=== PATIENT | male | born 1990 | race Caucasian/White ===

== ENCOUNTER 2017-06-03 06:00 | Emergency (ER) | payer MEDICAID ==
[~2017-06-03] VITALS: Ht 182.9 cm; Wt 81.6 kg
[2017-06-03 06:02] VITALS: BP_SYST 123
[2017-06-03] MEDS ORDERED: NACL 0.9% 1,000 ML IV ONE (06:30)
[2017-06-03 07:14] LABS: CALCIUM 8.3 mg/dL (8.4-11.0); CREATININE 0.95 mg/dL (0.55-1.30); POTASSIUM 3.5 mmol/L (3.5-5.1)
[2017-06-03 07:19] LABS: ALBUMIN 4.3 g/dL (3.4-4.8); TOTAL BILIRUBIN 0.3 mg/dL (0.0-1.0)
[2017-06-03 07:23] LABS: BASOPHILS # (AUTO) 0.1 K/uL (0.0-0.2); BASOPHILS % (AUTO) 0.8 % (0.0-2.0); EOSINOPHILS # (AUTO) 0.4 K/uL (0.0-0.4); EOSINOPHILS % (AUTO) 5.2 % (0.0-4.0); HEMATOCRIT 43.7 % (36-54); HEMOGLOBIN 15.1 g/dL (14.0-18.0); LYMPHOCYTES # (AUTO) 2.7 K/uL (1.0-5.5); LYMPHOCYTES % (AUTO) 34.1 % (20.5-51.5); MEAN CORPUSCULAR HEMOGLOBIN 30 pg (27-31); MEAN CORPUSCULAR HGB CONC 35 % (32-36); MEAN CORPUSCULAR VOLUME 88 fL (79.0-98.0); MONOCYTES # (AUTO) 0.6 K/uL (0.0-1.0); MONOCYTES % (AUTO) 7.1 % (1.7-9.3); NEUTROPHILS # (AUTO) 4.2 K/uL (1.8-7.7); NEUTROPHILS % (AUTO) 52.8 % (40.0-70.0); PLATELET COUNT (AUTO) 209 K/uL (130-430); RED BLOOD CELL COUNT(AUTO) 4.96 MIL/uL (4.2-6.2); RED CELL DISTRIBUTION WIDTH 11.8 % (9.0-15.0)
[2017-06-03 07:40] VITALS: BP_SYST 124
[2017-06-03 08:05] LABS: INR 0.9 (0.80-1.20); PROTHROMBIN TIME 9.3 SECS (9.5-12.5)
== END 2017-06-03 07:42 | disposition home or self-care (01) ==
LOC: SED 06:00
DX: R10.13 Epigastric pain (principal); R11.10 Vomiting, unspecified; T40.605A Adverse effect of unspecified narcotics, initial encounter; J45.909 Unspecified asthma, uncomplicated; F17.200 Nicotine dependence, unspecified, uncomplicated; Y92.89 Other specified places as the place of occurrence of the external cause
CPT/HCPCS: 36415; 71010; 80053; 85025; 85610; 85730; 93005; 96360; 99285; J7030

== ENCOUNTER 2017-10-05 09:24 | Emergency (ER) | payer MEDICAID ==
[~2017-10-05] VITALS: Ht 182.9 cm; Wt 81.6 kg
[2017-10-05 09:52] VITALS: BP_SYST 125
[2017-10-05 10:10] LABS: BILIRUBIN,URINE NEGATIVE (NEGATIVE); BLOOD, URINE NEGATIVE (NEGATIVE); CLARITY/URINE CLEAR (CLEAR); COLOR,URINE YELLOW (YELLOW); GLUCOSE,URINE NEGATIVE (NEGATIVE); KETONES,URINE NEGATIVE (NEGATIVE); LEUKOCYTE ESTERASE ,URINE NEGATIVE (NEGATIVE); NITRITE, URINE NEGATIVE (NEGATIVE); PH,URINE 6.5 (5.0-8.0); PROTEIN URINE NEGATIVE (NEGATIVE); UROBILINOGEN,URINE 0.2 (0.2-1.0)
--- NOTE | 2017-10-05 11:39 | NUR ---
Ambulatory to [facility] chair 1
--- NOTE | 2017-10-05 12:20 | NUR ---
Dr. Alicea attempting to find pt for evaluation, pt no longer in hallway chair.
--- NOTE | 2017-10-05 12:46 | NUR ---
Called pt in [place], no answer. Pt eloped at this time.
== END 2017-10-05 12:46 | disposition left against medical advice (07) ==
LOC: SED 09:24
DX: R30.9 Painful micturition, unspecified (principal); Z53.21 Procedure and treatment not carried out due to patient leaving prior to being seen by health care provider
CPT/HCPCS: 81003; 99281

== ENCOUNTER 2018-07-17 11:38 | Inpatient (IN) | payer MEDICAID ==
[~2018-07-17] VITALS: Ht 170.2 cm; Wt 68.9 kg
[2018-07-17 11:38] VITALS: BP_SYST 160
--- NOTE | 2018-07-17 11:40 | NUR ---
BROUGHT BACK TO BED #5 AND TRIAGED. REPORT GIVEN TO HERMINIA
--- NOTE | 2018-07-17 11:55 | NUR ---
PATIENT SITTING UP ON BED. AAOx4. RESPIRATIONS EVEN AND UNLABORED. NO SOB. NO DROOLING. NO THROAT TIGHTNESS. SPEAKING FULL SENTENCES. DENIES OF ANY CHEST PAIN. PT WITH C/O RIGHT FACIAL SWELLING SINCE THIS AM. PT STATED THAT HE WAS GIVEN A "GREEN AND WHITE PILL, [place]" BY HIS FRIEND YESTERDAY FOR HIS PIMPLE. PT WITH DISCOMFORT ON RIGHT SIDE OF FACE = 5/10; TOLERABLE VERBALIZED. RIGHT SIDE OF FACE AND LIPS NOTED WITH SWELLING. NO OBJECTIVE S/SX OF PAIN OBSERVED. MD AWARE OF PT CONDITION. WILL CONTINUE TO MONITOR.
--- NOTE | 2018-07-17 12:00 | NUR ---
ER Dr. DO at bedside examining patient.
[2018-07-17] MEDS ORDERED: KETOROLAC TROMETHAMINE 30 MG VIAL IVP ONE (12:15)
[2018-07-17] MEDS ORDERED: CEFAZOLIN 1 GM IVPB PREMIX 50 ML IV ONE (12:15)
[2018-07-17] MEDS ORDERED: VANCOMYCIN HCL 1,000 MG in NS 250 ML IV ONE (12:15)
[2018-07-17] MEDS ORDERED: VANCOMYCIN HCL 1000 MG/VIAL IV ONE (12:25)
--- NOTE | 2018-07-17 12:30 | NUR ---
TORADOL ADMINISTERED PER MD ORDERS FOR RIGHT SIDED FACIAL PAIN. TOLERATED WELL. PLEASE SEE MAR FOR DETAILS. IVPB OF CEFAZOLIN STARTED. TOLERTING WELL. PLEASE SEE MAR FOR DETAILS. PT RESTING COMFORTABLY ON BED. NOT IN ANY ACUTE DISTRESS. WILL CONTINUE TO MONITOR.
[2018-07-17 12:49] LABS: CALCIUM 8.8 mg/dL (8.4-11.0); CREATININE 0.79 mg/dL (0.55-1.30); POTASSIUM 3.9 mmol/L (3.5-5.1)
[2018-07-17 12:54] LABS: HEMATOCRIT 42.2 % (36-54); HEMOGLOBIN 14.4 g/dL (14.0-18.0); MEAN CORPUSCULAR HEMOGLOBIN 33 pg (27-31); MEAN CORPUSCULAR HGB CONC 34 % (32-36); MEAN CORPUSCULAR VOLUME 95 fL (79.0-98.0); PLATELET COUNT (AUTO) 403 K/uL (130-430); RED BLOOD CELL COUNT(AUTO) 4.43 MIL/uL (4.2-6.2); RED CELL DISTRIBUTION WIDTH 12.3 % (9.0-15.0); WHITE BLOOD COUNT (AUTO) 19.3 K/uL (4.8-10.8)
[2018-07-17 12:55] LABS: ALBUMIN 3.1 g/dL (3.4-4.8); TOTAL BILIRUBIN 0.4 mg/dL (0.0-1.0)
[2018-07-17 13:42] LABS: BASOPHILS % (MANUAL) 0 % (0-2); EOSINOPHILS % (MANUAL) 0 % (0-7); LYMPHOCYTES % (MANUAL) 7 % (20-46); MONOCYTES % (MANUAL) 8 % (0-11)
--- NOTE | 2018-07-17 13:45 | NUR ---
Pt resting comfortably in bed with no signs of distress .Will continue to monitor.
--- NOTE | 2018-07-17 15:30 | NUR ---
Patient resting quietly in no acute distress. Dr Lee at bedside speaking with patient regarding results and plan of care. Questions answered by Dr Lee.
--- NOTE | 2018-07-17 16:07 | NUR ---
Patient will be admitted to care of [facility]. Admitted to MEDSURG unit. Will go to room 120B. Belongings list completed. Summary report printed. Report will be given at bedside.
--- NOTE | 2018-07-17 16:15 | NUR ---
PATIENT COMES FROM ER VIA GURNEY A 52 YEAR OLD MALE WITH FACIAL SWELLING ON THE RT FACE INCLUDING THE LIP AREA. WARM TO TOUCH, REDNESS NOTED. VITAL SIGNS STABLE 164/91, TEMP 98.7 HR 85 RESPIRATION 20. COMPLAINED OF PAIN ON THE RT FACE AND HEADACHE NOTED. ADMISSION ASSESSMENT DONE. REFUSED TO HAVE FLU SHOT. VERBALIZED WANTS TO EAT. AT 1635PM DR COWART CAME AND SEE THE PATIENT AND MADE ORDERS. ORIENTATION TO THE ROOM EXPLAINED TO THE PATIENT.
[2018-07-17 16:32] VITALS: BP_SYST 164
[2018-07-17 16:44] VITALS: BP_SYST 164
[2018-07-17] MEDS ORDERED: IBUPROFEN 600 MG TABLET PO PRN (16:45)
[2018-07-17] MEDS ORDERED: ACETAMINOPHEN 325 MG TABLET PO PRN (16:45)
[2018-07-17] MEDS ORDERED: VANCOMYCIN HCL 1 GM/NS PREMIX 250 ML IV SCH (17:00)
[2018-07-17] MEDS ORDERED: FAMOTIDINE 20 MG TABLET PO ONE (17:00)
--- NOTE | 2018-07-17 17:00 | NUR ---
Note Report received from admit RN Chuy Burgos for continuation of care. Admission assessment was completed at this time. Call light within reach.
--- NOTE | 2018-07-17 17:09 | NUR ---
ID consult called: for Dr. Whitt, regarding facial cellulitis, ordered by Dr. Raymundo, spoke with Radha.
--- NOTE | 2018-07-17 18:35 | NUR ---
Note Checked medication room IVF's - not available at this time. Pt asleep. Pt has been sleepy and drowsy since pt arrived on floor at 1630. No SOB/resp distress or pain/discomfort noted all shift. IV in right AC intact and patent at this time. Pt checked on q1' and PRN all shift for needs and care. No needs noted. Call light within reach.
[2018-07-17 19:05] VITALS: BP_SYST 155
--- NOTE | 2018-07-17 19:05 | NUR ---
OPENING NOTE RECEIVED PT ENDORSEMENT REPORT FROM DAY SHIFT NURSE KEIRA AT BEDSIDE. PT RESTING IN BED WITH EYES OPEN, CHEST RISE EVEN AND UNLABORED. NO SOB NOTED. NO DISTRESS NOTED. PT DENIES PAIN AT THIS TIME. PT'S IV ON RIGHT AC 20 G, SL. IV CLEAN, DRY AND INTACT. SKIN IS INTACT. CELLULITIS TO PT'S RIGHT SIDE OF FACE AND SWELLING MOSTLY ON PT'S RIGHT SIDE OF LIPS. PT ABLE TO AMBULATE TO RESTROOM WITH STEADY GAIT. VITAL SIGNS WNL. INSTRUCTED PT HOW TO USE CALL LIGHT AND ROOM PHONE. PT VERBALIZED UNDERSTANDING. INSTRUCTED PT ON SAFETY AND TO USE CALL LIGHT TO CALL FOR ASSISTANCE. PT VERBALIZED UNDERSTANDING. SAFETY MEASURES IN PLACE. CALL LIGHT/ ROOM PHONE WITHIN REACH, BED ALARM ON, BED IN LOWEST POSITION, BED RAILS UP X2, BED WHEELS LOCKED, BEDSIDE TABLE WITHIN REACH. NO OTHER NEEDS AT THIS TIME. SAFETY MEASURES IN PLACE. WILL CONTINUE TO MONITOR PT AND CONTINUE POC.
[2018-07-17] MEDS: POTASSIUM CHLORIDE 10 MEQ in NACL 0.9% 1,000 ML IV SCH (20:27)
--- NOTE | 2018-07-17 20:50 | NUR ---
RN ROUNDS PT RESTING IN BED WITH EYES OPEN, CHEST RISE EVEN AND UNLABORED. NO SOB NOTED. NO DISTRESS NOTED. FAMILY AT BEDSIDE. PT REPORTS 6/10 PAIN, PT C/O HEADACHE. PRN MOTRIN ADMINISTERED FOR PAIN ORDERED. PT TOLERATED WELL. WILL MONITOR MEDICATION EFFECTIVENESS. NO OTHER NEEDS AT THIS TIME. SAFETY MEASURES IN PLACE. WILL CONTINUE TO MONITOR PT AND CONTINUE POC.
--- NOTE | 2018-07-17 21:00 | NUR ---
RN ROUNDS PT RESTING IN BED WITH EYES OPEN, CHEST RISE EVEN AND UNLABORED. NO SOB NOTED. NO DISTRESS NOTED. PT DENIES PAIN AT THIS TIME. SCHEDULED FLUIDS ADMINISTERED AT ORDERED RATE. IVF INFUSING WELL. NO OTHER NEEDS AT THIS TIME. INSTRUCTED PT TO CALL FOR ASSISTANCE. SAFETY MEASURES IN PLACE. WILL CONTINUE TO MONITOR PT AND CONTINUE POC.
[2018-07-17] MEDS: ceFAZolin SODIUM 1 GM in D5W 50 ML IV SCH (22:17)
[2018-07-17 23:13] VITALS: BP_SYST 169
[2018-07-17] MEDS: cloNIDine HCL 0.1 MG TABLET PO PRN (23:51)
--- NOTE | 2018-07-17 23:53 | NUR ---
MED PASS PT C/O 3/10 MOUTH PAIN. PRN TYLENOL GIVEN ORDERED FOR MILD PAIN. PT'S BP 169/90 PRN CLONIDINE GIVEN FOR SBP GREATER THAN 160. PT TOLERATED MEDICATIONS WELL. SAFETY MEASURES IN PLACE. WILL CONTINUE TO MONITOR PT.
--- NOTE | 2018-07-18 01:03 | NUR ---
RN ROUNDS PT RESTING IN BED WITH EYES CLOSED, CHEST RISE EVEN AND UNLABORED. NO SOB NOTED. NO DISTRESS NOTED. IVF INFUSING WELL. NO OTHER NEEDS AT THIS TIME. INSTRUCTED PT TO CALL FOR ASSISTANCE. SAFETY MEASURES IN PLACE. WILL CONTINUE TO MONITOR PT AND CONTINUE POC.
[2018-07-18] MEDS: POTASSIUM CHLORIDE 10 MEQ in NACL 0.9% 1,000 ML IV SCH (02:40)
[2018-07-18] MEDS: ceFAZolin SODIUM 1 GM in D5W 50 ML IV SCH (06:16)
--- NOTE | 2018-07-18 06:18 | NUR ---
MED PASS PT RESTING IN BED WITH EYES OPEN. CHEST RISE EVEN AND UNLABORED. NO SOB NOTED. NO DISTRESS NOTED. SCHEDULED ANTIBIOTIC ANCEF ADMINISTERED AT ORDERED RATE. PT TOLERATED WELL. IVF INFUSING WELL. SAFETY MEASURES IN PLACE. WILL CONTINUE TO MONITOR PT.
[2018-07-18 06:45] LABS: CALCIUM 8.9 mg/dL (8.4-11.0); CREATININE 0.73 mg/dL (0.55-1.30); POTASSIUM 4.2 mmol/L (3.5-5.1)
[2018-07-18 07:03] LABS: ALBUMIN 2.7 g/dL (3.4-4.8); TOTAL BILIRUBIN 0.4 mg/dL (0.0-1.0)
--- NOTE | 2018-07-18 07:08 | NUR ---
RN ROUNDS PT RESTING IN BED WITH EYES CLOSED, CHEST RISE EVEN AND UNLABORED. NO SOB NOTED. NO DISTRESS NOTED. NO NEEDS AT THIS TIME. SAFETY MEASURES IN PLACE. WILL CONTINUE TO MONITOR PT AND CONTINUE POC.
[2018-07-18 07:22] LABS: BASOPHILS % (AUTO) 0.2 % (0.0-2.0); EOSINOPHILS # (AUTO) 0.2 K/uL (0.0-0.4); EOSINOPHILS % (AUTO) 0.9 % (0.0-4.0); HEMATOCRIT 40.8 % (36-54); HEMOGLOBIN 13.8 g/dL (14.0-18.0); LYMPHOCYTES # (AUTO) 1.9 K/uL (1.0-5.5); MEAN CORPUSCULAR HEMOGLOBIN 32 pg (27-31); MEAN CORPUSCULAR HGB CONC 34 % (32-36); MEAN CORPUSCULAR VOLUME 95 fL (79.0-98.0); MONOCYTES # (AUTO) 1.4 K/uL (0.0-1.0); MONOCYTES % (AUTO) 7.2 % (1.7-9.3); NEUTROPHILS # (AUTO) 15.5 K/uL (1.8-7.7); PLATELET COUNT (AUTO) 412 K/uL (130-430); RED BLOOD CELL COUNT(AUTO) 4.29 MIL/uL (4.2-6.2); RED CELL DISTRIBUTION WIDTH 12.2 % (9.0-15.0)
[2018-07-18 07:38] LABS: NEUTROPHILS % (AUTO) 81.7 % (40.0-70.0)
--- NOTE | 2018-07-18 07:43 | NUR ---
CLOSING NOTE ENDORSED PT REPORT TO DAY SHIFT NURSE DEMETRIO AT BEDSIDE. PT IS RESTING IN BED COMFORTABLY. CHEST RISE EVEN AND UNLABORED. ALL NEEDS MET THROUGHOUT THE NIGHT. SCHEDULED MEDICATIONS ADMINISTERED ORDERED, PT TOLERATED WELL. PAIN MANAGED THROUGHOUT THE NIGHT. PT CARE ENDORSED.
[2018-07-18 08:00] VITALS: BP_SYST 163
--- NOTE | 2018-07-18 08:00 | NUR ---
RN OPENING NOTE PATIENT RESTING ON BED, ALERT ORIENTEDX4, PATIENT WAS ASSESSED, VITAL SIGNS SHOWS HIGH BLOOD PRESSURE, WILL ADMINISTER HIS PRN BLOOD PRESSURE MEDICATION. PATIENT DENIES PAIN OR DISCOMFORT. PATIENT'S BED AT LOW POSITION AND CALL LIGHT WITHIN REACH, WILL CONTINUE TO MONITOR.
[2018-07-18] MEDS: FAMOTIDINE 20 MG TABLET PO SCH (10:04)
[2018-07-18] MEDS: cloNIDine HCL 0.1 MG TABLET PO PRN (10:18)
[2018-07-18] MEDS: HYDROcodone/ACETAMIN 5-325 MG TAB (NORCO/ VICODIN) PO PRN ×2 (10:27→19:54)
--- NOTE | 2018-07-18 10:27 | NUR ---
RN NOTE PATIENT WAS GIVEN HIS PAIN MEDICATION, PATIENT RESTING ON BED. PATIENT WAS HELPED TO THE BATHROOM WHERE HE VOIDED URINE, WILL CONTINUE TO MONITOR
--- NOTE | 2018-07-18 11:51 | NUR ---
RN NOTE LAB CALLED REGARDING THE MICRO CULTURE OF THE PATIENT ORAL BUCCAL AREA THAT SHOWS. G+VE COCCI IN [place], DR. COWART WAS ON THE FLOOR AND WAS INFORMED OF THE RESULT. NO CHANGES IN ORDER, SHE SAID SHE IS AWAITING FOR DR. HENAO TO SEE THE PATIENT. WILL CONTINUE TO MONITOR.
[2018-07-18 12:00] VITALS: BP_SYST 137
[2018-07-18] MEDS ORDERED: CLINDAMYCIN 600 MG in D5W 50 ML IV ONE (12:15)
[2018-07-18] MEDS: VANCOMYCIN HCL 1 GM/NS PREMIX 250 ML IV SCH (13:18)
--- NOTE | 2018-07-18 13:32 | NUR ---
Elayne Yung Called: left message for Linda, ordered by Dr. Raymundo.
--- NOTE | 2018-07-18 13:43 | NUR ---
RN NOTE PATIENT WAS GIVEN HIS IVPB OF ANTIBIOTICS , PATIENT DENIES PAIN OR DISCOMFORT. WILL CONTINUE TO MONITOR.
[2018-07-18] MEDS: POTASSIUM CHLORIDE 10 MEQ in 0.45% NACL 1,000 ML IV SCH (14:59)
--- NOTE | 2018-07-18 15:50 | NUR ---
CONSULTATION PAGED/CALLED Reason for Consultation: [] FACIAL CELLULITIS Person Who was Notified: [] DR SCHWARTZ Consulting Physician: [] DR SCHWARTZ Test Inspection Engineer Specialty: [] ID Ordering Physician: [] DR COWART
--- NOTE | 2018-07-18 16:00 | NUR ---
RN NOTE PATIENT RESTING ON BED, PATIENT WAS EDUCATED ABOUT HIS DISEASE PROCESS. DR. HENAO ALREADY SAW THE PATIENT , WILL FOLLOW UP WITH THE NEW ANTIBIOTICS. PATIENT WAS ASSISTED TO THE BATH ROOM FOR VOIDING. WILL CONTINUE TO MONITOR.
[2018-07-18 16:40] VITALS: BP_SYST 148
--- NOTE | 2018-07-18 18:00 | NUR ---
RN CLOSING NOTE PATIENT RESTING ON BED , ALERT ORIENTED, DENIES PAIN, PATIENT WAS SERVED HIS DINNER. PATIENT BED WAS MADE FOR HIM. PATIENT HAS NO COMPLAINTS OR NEEDS AT THIS TIME, BED AT LOW POSITION AND CALL LIGHT WITHIN REACH, WILL CONTINUE TO MONITOR. AND WILL ENDORSE TO NEXT SHIFT.
--- NOTE | 2018-07-18 19:35 | NUR ---
Opening notes Received report. Patient is resting in bed. No signs of distress noted. Patient complains of 10/10 pain. Will medicate shortly. IV is patent and intact, infusing fluids. Breathing is even and unlabored. No other needs at this time. Safety precautions in place.
[2018-07-18 20:00] VITALS: BP_SYST 156
--- NOTE | 2018-07-18 21:30 | NUR ---
RN rounds Patient is resting comfortably in bed. No signs of distress. No needs at this moment. Safety precautions in place. Family is at the bedside.
--- NOTE | 2018-07-18 23:32 | NUR ---
Patient transferred Patient and patient's belongings transferred to room 119 B.
[2018-07-18] MEDS: CLINDAMYCIN 600 MG in D5W 50 ML IV SCH (23:35)
[2018-07-19] VITALS: BP_SYST 159
--- NOTE | 2018-07-19 01:07 | NUR ---
RN rounds Patient asleep in bed. No signs of distress noted. Breathing even and unlabored. Safety precautions in place.
[2018-07-19] MEDS: HYDROcodone/ACETAMIN 5-325 MG TAB (NORCO/ VICODIN) PO PRN ×4 (01:58→23:37)
--- NOTE | 2018-07-19 02:00 | NUR ---
Pain meds Patient complains of 10/10. Gave prn pain meds. Patient tolerated well. No signs of allergic reaction. Educated the patient to call for help if he wants to get up. Patient verbalized understanding.
--- NOTE | 2018-07-19 04:10 | NUR ---
RN rounds Patient is asleep in bed. No signs of distress noted. Breathing is even and unlabored. Safety precautions in place.
[2018-07-19] MEDS: POTASSIUM CHLORIDE 10 MEQ in 0.45% NACL 1,000 ML IV SCH ×2 (04:41→17:00)
[2018-07-19] MEDS: CLINDAMYCIN 600 MG in D5W 50 ML IV SCH ×4 (05:00→23:37)
--- NOTE | 2018-07-19 06:41 | NUR ---
Closing notes Patient is resting comfortably in bed. No signs of distress noted. Breathing is even and unlabored on room. IV is patent and intact infusing fluids. Vital signs are stable. Practice guidelines met throughout the shift. Safety precautions are in place.
[2018-07-19 07:28] LABS: BASOPHILS % (AUTO) 0.2 % (0.0-2.0); EOSINOPHILS # (AUTO) 0.3 K/uL (0.0-0.4); EOSINOPHILS % (AUTO) 1.8 % (0.0-4.0); HEMATOCRIT 39.6 % (36-54); HEMOGLOBIN 13.6 g/dL (14.0-18.0); LYMPHOCYTES # (AUTO) 2.2 K/uL (1.0-5.5); LYMPHOCYTES % (AUTO) 13.8 % (20.5-51.5); MEAN CORPUSCULAR HEMOGLOBIN 33 pg (27-31); MEAN CORPUSCULAR HGB CONC 34 % (32-36); MEAN CORPUSCULAR VOLUME 95 fL (79.0-98.0); MONOCYTES # (AUTO) 1.3 K/uL (0.0-1.0); MONOCYTES % (AUTO) 8.2 % (1.7-9.3); NEUTROPHILS # (AUTO) 12.4 K/uL (1.8-7.7); PLATELET COUNT (AUTO) 429 K/uL (130-430); RED BLOOD CELL COUNT(AUTO) 4.18 MIL/uL (4.2-6.2); RED CELL DISTRIBUTION WIDTH 12.3 % (9.0-15.0); WHITE BLOOD COUNT (AUTO) 16.2 K/uL (4.8-10.8)
--- NOTE | 2018-07-19 07:53 | NUR ---
S.T. SWALLOW EVAL COMPLETED. PT PRESENTS W/ MOD ORAL DYSPHAGIA W/ DELAYED BOLUS TRANSFER AND PROLONGED MASTICATION. NO S/S OF ASPIRATION. [facility] FIN[facility] CHOP[facility]. THIN LIQUIDS OK. SLOW EATING. NURSE ANASTASIA NOTIFIED. [id number] CJ [id number] CJ [id number] CJ NOMS LEVEL 5
[2018-07-19 08:00] VITALS: BP_SYST 160
--- NOTE | 2018-07-19 08:00 | NUR ---
Opening Note Report received from [facility] shift nurse. Patient is resting in bed and is awake and lert. Patient has facial swelling on the lips and over the right side of the face. IV is on the RAC 20g running D51/2NS+10KCL@80. Call light is within reach and bed is in low position. Will continue to monitor.
[2018-07-19] MEDS: FAMOTIDINE 20 MG TABLET PO SCH (09:09)
[2018-07-19] MEDS: cloNIDine HCL 0.1 MG TABLET PO PRN (09:12)
--- NOTE | 2018-07-19 09:57 | NUR ---
P.T. NOTES P.T. BETTINA COMPLETED; NURSING TO [facility] PATIENT AD KOBE Addendum: 07/19/18 at 0957 by Mayela Corado PT Amended: Links added.
--- NOTE | 2018-07-19 10:20 | NUR ---
Rounds Patient is resting in bed. Call light is within reach.
[2018-07-19 12:22] VITALS: BP_SYST 126
--- NOTE | 2018-07-19 12:30 | NUR ---
Rounds Patient is currently resting in bed. Call light is within reach.
[2018-07-19] MEDS: VANCOMYCIN HCL 1 GM/NS PREMIX 250 ML IV SCH (12:51)
--- NOTE | 2018-07-19 14:08 | NUR ---
Rounds Patient is resting in bed. Call light is within reach.
--- NOTE | 2018-07-19 16:12 | NUR ---
Rounds Patient is resting in bed. Call light is within reach.
[2018-07-19 16:29] VITALS: BP_SYST 139
--- NOTE | 2018-07-19 17:10 | NUR ---
Pain med Medicated the patient with [place] for pain using the indicated pain scale. Will reassess
--- NOTE | 2018-07-19 18:05 | NUR ---
Closing Note Patient has been stable throughout the day and tolerating his soft diet well. IV is on the RAC 20g running D51/2NS+10KCL@80. Call light is within reach and bed is in low position. Will endorse care to the oncoming nurse.
[2018-07-19 19:35] VITALS: BP_SYST 132
--- NOTE | 2018-07-19 19:35 | NUR ---
OPENING NOTE RECEIVED PT ENDORSEMENT REPORT FROM DAY SHIFT NURSE ANASTASIA AT BEDSIDE. PT RESTING IN BED WITH EYES OPEN, CHEST RISE EVEN AND UNLABORED. NO SOB NOTED. NO DISTRESS NOTED. PT DENIES PAIN AT THIS TIME. PT'S IV ON RIGHT AC 20 G, SL. IV CLEAN, DRY AND INTACT. SKIN IS INTACT. CELLULITIS TO PT'S RIGHT SIDE OF FACE AND SWELLING MOSTLY ON PT'S RIGHT SIDE OF LIPS. PT ABLE TO AMBULATE TO RESTROOM WITH STEADY GAIT. VITAL SIGNS WNL. INSTRUCTED PT HOW TO USE CALL LIGHT AND ROOM PHONE. PT VERBALIZED UNDERSTANDING. INSTRUCTED PT ON SAFETY AND TO USE CALL LIGHT TO CALL FOR ASSISTANCE. PT VERBALIZED UNDERSTANDING. SAFETY MEASURES IN PLACE. CALL LIGHT/ ROOM PHONE WITHIN REACH, BED ALARM ON, BED IN LOWEST POSITION, BED RAILS UP X2, BED WHEELS LOCKED, BEDSIDE TABLE WITHIN REACH. NO OTHER NEEDS AT THIS TIME. SAFETY MEASURES IN PLACE. WILL CONTINUE TO MONITOR PT AND CONTINUE POC.
--- NOTE | 2018-07-19 20:40 | NUR ---
RN ROUNDS PT RESTING IN BED WITH EYES OPEN, CHEST RISE EVEN AND UNLABORED. NO SOB NOTED. NO DISTRESS NOTED. PT DENIES PAIN AT THIS TIME. NO NEEDS AT THIS TIME. SAFETY MEASURES IN PLACE. WILL CONTINUE TO MONITOR PT AND CONTINUE POC.
[2018-07-19] MEDS: MUPIROCIN 2% TOPICAL OINTMENT 22 GM NS SCH (21:00)
--- NOTE | 2018-07-19 21:50 | NUR ---
RN ROUNDS PT RESTING IN BED WITH EYES OPEN, CHEST RISE EVEN AND UNLABORED. NO SOB NOTED. NO DISTRESS NOTED. PT DENIES PAIN AT THIS TIME. PT SIGNED MRSA PT NOTIFICATION FORM. SCHEDULED BACTROBAN NOT ADMINISTERED ORDERED, MEDICATION NOT AVAILABLE. NO OTHER NEEDS AT THIS TIME. SAFETY MEASURES IN PLACE. WILL CONTINUE TO MONITOR PT AND CONTINUE POC.
[2018-07-19 23:24] VITALS: BP_SYST 137
--- NOTE | 2018-07-19 23:35 | NUR ---
[employer] PT REPORTS 10/10 PAIN TO MOUTH, PRN NORCO ADMINISTERED FOR PAIN. PT TOLERATED WELL. NO OTHER NEEDS AT THIS TIME. SAFETY MEASURES IN PLACE. WILL CONTINUES TO MONITOR PT.
--- NOTE | 2018-07-20 01:20 | NUR ---
RN ROUNDS PT RESTING IN BED WITH EYES OPEN, CHEST RISE EVEN AND UNLABORED. NO SOB NOTED. NO DISTRESS NOTED. PT DENIES PAIN AT THIS TIME. SCHEDULED CLEOCIN ADMINISTERED AT ORDERED RATE. IVF INFUSING WELL. NO OTHER NEEDS AT THIS TIME. SAFETY MEASURES IN PLACE. WILL CONTINUE TO MONITOR PT AND CONTINUE POC.
--- NOTE | 2018-07-20 03:50 | NUR ---
RN ROUNDS PT RESTING IN BED WITH EYES CLOSED. CHEST RISE EVEN AND UNLABORED. NO SOB NOTED. NO DISTRESS NOTED. PT DENIES PAIN AT THIS TIME. PT'S IV ON RIGHT AC 20 G, SL. IV CLEAN, DRY AND INTACT. SKIN IS INTACT. SAFETY MEASURES IN PLACE. CALL LIGHT/ ROOM PHONE WITHIN REACH, BED ALARM ON, BED IN LOWEST POSITION, BED RAILS UP X2, BED WHEELS LOCKED, BEDSIDE TABLE WITHIN REACH. NO OTHER NEEDS AT THIS TIME. SAFETY MEASURES IN PLACE. WILL CONTINUE TO MONITOR PT AND CONTINUE POC.
--- NOTE | 2018-07-20 05:36 | NUR ---
RN ROUNDS PT RESTING IN BED WITH EYES CLOSED, CHEST RISE EVEN AND UNLABORED. NO SOB NOTED. NO DISTRESS NOTED. NO S/S OF PAIN NOTED. SAFETY MEASURES IN PLACE. WILL CONTINUE TO MONITOR PT AND CONTINUE POC.
[2018-07-20] MEDS: POTASSIUM CHLORIDE 10 MEQ in 0.45% NACL 1,000 ML IV SCH (05:44)
[2018-07-20] MEDS: CLINDAMYCIN 600 MG in D5W 50 ML IV SCH ×2 (05:48→11:58)
--- NOTE | 2018-07-20 05:50 | NUR ---
MED PASS ADMINISTERED PT'S SCHEDULED FLUIDS AND ANTIBIOTIC CLEOCIN ORDERED. IVF INFUSING WELL AT ORDERED RATE. PT TOLERATING WELL. NO OTHER NEEDS AT THIS TIME. WILL CONTINUE TO MONITOR PT.
[2018-07-20 06:51] LABS: BASOPHILS # (AUTO) 0.1 K/uL (0.0-0.2); BASOPHILS % (AUTO) 0.7 % (0.0-2.0); EOSINOPHILS # (AUTO) 0.4 K/uL (0.0-0.4); EOSINOPHILS % (AUTO) 3.3 % (0.0-4.0); HEMATOCRIT 38.7 % (36-54); HEMOGLOBIN 13.1 g/dL (14.0-18.0); LYMPHOCYTES # (AUTO) 2.1 K/uL (1.0-5.5); LYMPHOCYTES % (AUTO) 18.4 % (20.5-51.5); MEAN CORPUSCULAR HEMOGLOBIN 32 pg (27-31); MEAN CORPUSCULAR HGB CONC 34 % (32-36); MEAN CORPUSCULAR VOLUME 96 fL (79.0-98.0); MONOCYTES % (AUTO) 8.6 % (1.7-9.3); NEUTROPHILS # (AUTO) 7.9 K/uL (1.8-7.7); PLATELET COUNT (AUTO) 457 K/uL (130-430); RED BLOOD CELL COUNT(AUTO) 4.05 MIL/uL (4.2-6.2); RED CELL DISTRIBUTION WIDTH 12.2 % (9.0-15.0); WHITE BLOOD COUNT (AUTO) 11.5 K/uL (4.8-10.8)
--- NOTE | 2018-07-20 07:24 | NUR ---
CLOSING NOTE ENDORSED PT REPORT TO DAY SHIFT NURSE MIRIAN AT BEDSIDE. PT IS RESTING IN BED COMFORTABLY. CHEST RISE EVEN AND UNLABORED. ALL NEEDS MET THROUGHOUT THE NIGHT. SCHEDULED MEDICATIONS ADMINISTERED ORDERED, PT TOLERATED WELL. PAIN MANAGED THROUGHOUT THE NIGHT. PT CARE ENDORSED. Addendum: 07/20/18 at 0727 by Chyna Singh RN CLOSING NOTE ENDORSED PT REPORT TO DAY SHIFT NURSE AT BEDSIDE. PT IS RESTING IN BED COMFORTABLY. CHEST RISE EVEN AND UNLABORED. ALL NEEDS MET THROUGHOUT THE NIGHT. SCHEDULED MEDICATIONS ADMINISTERED ORDERED, PT TOLERATED WELL. PAIN MANAGED THROUGHOUT THE NIGHT. PT CARE ENDORSED.
--- NOTE | 2018-07-20 07:37 | NUR ---
OPENING NOTE Received report from [facility] shift nurse. At initial assessment, patient is asleep, no s/s of acute distress. Breathing even and unlabored, on room air. IV site patent and intact. IVF infusing as ordered. Safety and fall precautions in place, bed is in lowest position and locked, call light within reach, side rails up x2, will continue to monitor. Addendum: 07/20/18 at 1400 by Olivia Heller RN ADDENDUM Contact isolation in place.
[2018-07-20 08:21] VITALS: BP_SYST 144
[2018-07-20] MEDS: HYDROcodone/ACETAMIN 5-325 MG TAB (NORCO/ VICODIN) PO PRN (09:05)
[2018-07-20] MEDS: FAMOTIDINE 20 MG TABLET PO SCH (09:05)
[2018-07-20] MEDS: MUPIROCIN 2% TOPICAL OINTMENT 22 GM NS SCH (09:07)
--- NOTE | 2018-07-20 10:30 | NUR ---
ROUNDS Patient is asleep at this time. Visible rise and fall of the chest. No s/s of acute distress. Call light within reach, will continue to monitor.
--- NOTE | 2018-07-20 10:50 | NUR ---
CM DC PLANNING: HOME TODAY CM UPDATED WITH DR. COWART THAT Pt WILL DC HOME TODAY; NO DCP SERVICES NEEDED BY CM.
[2018-07-20] MEDS ORDERED: DOXY100T2 PO (12:00)
[2018-07-20] MEDS ORDERED: CLIN300C11 PO (12:00)
[2018-07-20] MEDS ORDERED: MUPI1OIN4 NS (12:01)
[2018-07-20 12:22] VITALS: BP_SYST 138
[2018-07-20 12:56] VITALS: BP_SYST 138
[2018-07-20] MEDS: VANCOMYCIN HCL 1 GM/NS PREMIX 250 ML IV SCH (13:04)
--- NOTE | 2018-07-20 13:59 | NUR ---
ROUNDS Patient is resting, denies any pain at this time. No respiratory distress noted. Call light within reach, will continue to monitor.
--- NOTE | 2018-07-20 16:30 | NUR ---
CM DC PLANNING: RE: MED Rx CM NOTIFIED BY RN/VALERY THAT WHEN NURSING WAS PROVIDING THE DC INTRUCTIONS, Pt STATED HE HAS NO MONEY FOR MEDS; AND, DOES NOT KNOW WHERE HE CAN OBTAIN MEDICATIONS PRESCRIBED BY DR. COWART. PER NSG, Pt STATED HE DOESN'T HAVE A PRIMARY MD FOR FOLLOW-UP AT CLINIC AND TYPICALLY GETS MEDS AT CLINIC WHERE HE DOES NOT HAVE TO PAY. CM INFORMED RN OF DISCOUNT CARDS FOR MEDS IN OFFICE. VALERY ACCOMPANIED CM TO RETRIEVE CARDS (GIVEN BOTH [place] & [place] FOR [employer] ASSISTANCE PROGRAM PRESCRIPTION DRUG DISCOUNT CARD) OR Pt CAN GO TO [facility] TO OBTAIN MEDS WITH [employer] MEDI-[employer]ARR[employer] CARD. CM REVIEWED [employer] & NOTED Pt HAS MEDI-WARREN INSURANCE WITH [employer]; RN TO INFORM Pt TO FOLLOW-UP WITH [facility] OR [facility] AT [phone]. RN TO PROVIDE Pt WITH INSURANCE INFO FROM A [employer], THE COMMUNITY ASSISTANCE PROGRAM CARDS, AND, THE NUMBER FOR [facility] OR [facility] TO ARRANGE FOR F/UP MD APPT S/P DISCHARGE.
--- NOTE | 2018-07-20 17:00 | NUR ---
Patient given medical insurance information where to call to get assign primary care physician and discount card for medication given by the rn case manager hospice Beth.
--- NOTE | 2018-07-20 17:00 | NUR ---
D/C Patient Patient given medication reconciliation form and D/C instructions. Exit Care provided. Patient verbalized understanding. MD discussed with patient the results and treatment provided. Ambulatory with steady gait for discharge to home. Patient in stable condition, ID band removed. IV catheter removed, intact and dressing applied, no active bleeding. Patient educated on pain management. All belongings sent with patient. Significant partner picked up patient.
== END 2018-07-20 17:00 | disposition home or self-care (01) | DRG 383 ==
LOC: SED 11:38 → EDBD 11:38 → SMU 15:59
PROVIDERS: ADMIT Internal Medicine; ATTEND Internal Medicine
DX: L03.211 Cellulitis of face (principal); R65.10 Systemic inflammatory response syndrome (SIRS) of non-infectious origin without acute organ dysfunction; E44.0 Moderate protein-calorie malnutrition; E11.65 Type 2 diabetes mellitus with hyperglycemia; Z68.23 Body mass index [BMI] 23.0-23.9, adult; B95.8 Unspecified staphylococcus as the cause of diseases classified elsewhere; F17.200 Nicotine dependence, unspecified, uncomplicated; J45.909 Unspecified asthma, uncomplicated; K21.9 Gastro-esophageal reflux disease without esophagitis; R03.0 Elevated blood-pressure reading, without diagnosis of hypertension; B95.62 Methicillin resistant Staphylococcus aureus infection as the cause of diseases classified elsewhere; F17.210 Nicotine dependence, cigarettes, uncomplicated
CPT/HCPCS: 36415; 80053; 83605; 85007; 85025; 85027; 87040-TC; 87081; 92610-GN; 96365; 96366; 96367; 96375; 99285; J0690; J1885; J3370; J3480; J3490; J7030; J7060